=== PATIENT | male | born 1940 | race Caucasian/White ===

== ENCOUNTER 2017-10-18 13:03 | Inpatient (IN) | payer MEDICARE, OTHER ==
[2017-10-18] VITALS (8 sets, daily range): BP systolic 90–119; BP diastolic 52–67; PULSE 78–87; RESP 16–20; TEMP 97.4–98.1; O2SAT 93–99
[~2017-10-18 13:03] MED LIST: AMLO2.5T PO; DIOV160T3 PO; DIPH2%T PO; GLUCTAB PO; OSEL75 PO; PROT40TA PO; ROBISYP PO; ZOFR4TAB3 SL; [UNRECOGNIZED DRUG - SUPPLY] NASAL
--- NOTE | 2017-10-18 13:28 | PD ---
HPI Chief Complaint: General Weakness Time Seen by Provider: 13:07 Travel History International Travel<30 days: No Contact w/Intl Traveler<30days: No Traveled to known affect area: No History of Present Illness HPI 76-year-old male presents to the emergency department via EMS for evaluation of fatigue, dizziness, generalized weakness, nausea. Patient states that he has been having these symptoms for the past 3 weeks. He went to [facility] on September 27. He states that they did a cardiac catheterization and told him it was too risky to place a stent. However, they came back and wanted to place a stent, back He declined. He states that he states has switched cardiologists since then and now sees Dr. Galdamez. Patient states that this morning, the symptoms have worsened and he vomited 1. Patient denies any headache. No fevers or chills. He denies any chest pain or shortness of breath. No abdominal pain. No nausea, vomiting, diarrhea. Patient denies any exacerbating or alleviating factors for his dizziness. No pain. No syncope. Moderate severity. PFSH Past Medical History Diabetes: Yes GERD: Yes Hypertension: Yes ?: Not Social History Alcohol Use: No Tobacco Use: No Substance Use: No Allergies-Medications (Allergen,Severity, Reaction): Coded Allergies: No Known Allergies (Verified Adverse Reaction, Unknown, 10/18/17) Uncoded Allergies: NKA (Allergy, Unknown, 07/05/03) Reported Meds & Prescriptions Reported Meds & Active Scripts Active Reported B-12 (Cyanocobalamin) 1,000 Mcg Subl 1,000 Mcg SL DAILY Vitamin D3 (Cholecalciferol) 2,000 Unit Cap 2,000 Units PO DAILY Aspirin Low Dose (Aspirin) 81 Mg Chew 81 Mg CHEW DAILY Furosemide 40 Mg Tab 40 Mg PO DAILY Carvedilol 3.125 Mg Tab 3.125 Mg PO BID Review of Systems Except as stated in HPI: all other systems reviewed are Neg Physical Exam Narrative GENERAL: Well-nourished, well-developed male patient, afebrile SKIN: Focused skin assessment warm/dry. HEAD: Normocephalic. Atraumatic. EYES: No scleral icterus. No injection or drainage. PERRLA. EOM intact. ENT: Mucosa pink and moist. No erythema or exudates. No uvular edema. No uvular , palatal, or tonsillar deviation. Airway patent. Nasal turbinates appear normal without nasal blood, purulent drainage or septal hematoma. Bilateral tympanic membranes are clear without erythema or perforation. NECK: Supple, trachea midline. No JVD or lymphadenopathy. CARDIOVASCULAR: Regular rate and rhythm without murmurs, gallops, or rubs. Bilateral radial and pedal pulses 2+ RESPIRATORY: Breath sounds equal bilaterally. No accessory muscle use. Lungs sounds are clear to auscultation. GASTROINTESTINAL: Abdomen soft, non-tender, nondistended. MUSCULOSKELETAL: No cyanosis, or edema. Bilateral upper and lower extremity strength 5/5. All extremities are neurovascularly intact. BACK: Nontender without obvious deformity. No CVA tenderness. NEUROLOGICAL: Awake and alert. Cranial nerves II through XII intact. Motor and sensory grossly within normal limits. Five out of 5 muscle strength in all muscle groups. Normal speech. Finger to nose is normal bilaterally. Heel-to- hayden is normal bilaterally. Data Data Last Documented VS Vital Signs Date Time Temp Pulse Resp B/P (MAP) Pulse Ox O2 Delivery O2 Flow Rate FiO2 10/18/17 15:35 78 20 102/56 (71) 98 2.00 10/18/17 14:13 Room Air 10/18/17 13:22 98.1 Orders Orders Electrocardiogram (10/18/17 13:18) Basic Metabolic Panel (Bmp) (10/18/17 13:18) B-Type Natriuretic Peptide (10/18/17 13:18) Ckmb (Isoenzyme) Profile (10/18/17 13:18) Complete Blood Count With Diff (10/18/17 13:18) Magnesium (Mg) (10/18/17 13:18) Prothrombin Time / Inr (Pt) (10/18/17 13:18) Act Partial Throm Time (Ptt) (10/18/17 13:18) Troponin I (10/18/17 13:18) Chest, Single Ap (10/18/17 13:18) Ecg Monitoring (10/18/17 13:18) Bilateral Bp Monitoring (10/18/17 13:18) Iv Access Insert/Monitor (10/18/17 13:18) Oximetry (10/18/17 13:18) Oxygen Administration (10/18/17 13:18) Sodium Chloride 0.9% Flush (Ns Flush) (10/18/17 13:30) Ondansetron Inj (Zofran Inj) (10/18/17 13:30) Aspirin Chew (Aspirin Chew) (10/18/17 15:00) Admit Order (Ed Use Only) (10/18/17 15:50) Labs Laboratory Tests Test 10/18/17 13:25 White Blood Count 10.1 TH/MM3 Red Blood Count 4.05 MIL/MM3 Hemoglobin 11.3 GM/DL Hematocrit 34.7 % Mean Corpuscular Volume 85.7 FL Mean Corpuscular Hemoglobin 27.8 PG Mean Corpuscular Hemoglobin Concent 32.5 % Red Cell Distribution Width 16.2 % Platelet Count 218 TH/MM3 Mean Platelet Volume 9.2 FL Neutrophils (%) (Auto) 87.3 % Lymphocytes (%) (Auto) 5.4 % Monocytes (%) (Auto) 6.0 % Eosinophils (%) (Auto) 0.6 % Basophils (%) (Auto) 0.7 % Neutrophils # (Auto) 8.8 TH/MM3 Lymphocytes # (Auto) 0.5 TH/MM3 Monocytes # (Auto) 0.6 TH/MM3 Eosinophils # (Auto) 0.1 TH/MM3 Basophils # (Auto) 0.1 TH/MM3 CBC Comment DIFF FINAL Differential Comment Prothrombin Time 10.8 SEC Prothromb Time International Ratio 1.1 RATIO Activated Partial Thromboplast Time 22.8 SEC Blood Urea Nitrogen 36 MG/DL Creatinine 1.60 MG/DL Random Glucose 151 MG/DL Calcium Level 8.6 MG/DL Magnesium Level 2.3 MG/DL Sodium Level 134 MEQ/L Potassium Level 3.4 MEQ/L Chloride Level 95 MEQ/L Carbon Dioxide Level 28.7 MEQ/L Anion Gap 10 MEQ/L Estimat Glomerular Filtration Rate 42 ML/MIN Total Creatine Kinase 65 U/L Troponin I 0.04 NG/ML B-Type Natriuretic Peptide 1492 PG/ML MDM Medical Decision Making Medical Screen Exam Complete: Yes Emergency Medical Condition: Yes Medical Record Reviewed: Yes Interpretation(s) chest x-ray - CONCLUSION: Minimal and nonspecific bibasilar parenchymal changes. Mild compensated cardiomegaly Differential Diagnosis ACS versus electrolyte abnormality versus dehydration versus cardiac arrhythmia Narrative Course 76-year-old male presents to the emergency department for evaluation of worsening fatigue, dizziness, nausea, generalized weakness. Recently had a cardiac workup done at [facility]. His current clinical quality rn is Dr. Galdamez. Records will be obtained from [facility]. EKG, CBC, BMP, CK, troponin, BNP, PTT, PT/INR, chest x-ray are ordered and pending. EKG shows sinus rhythm with PVCs, heart rate 79. CBC shows no acute abnormality. CMP shows BUN 36, currently 1.60, glucose 151. BNP is 1492. CK is 65. Troponin is 0.04. Coags show no acute abnormality. Chest x-ray shows minimal and nonspecific bibasilar parenchymal changes; mild compensated cardiomegaly I was able to obtain records from [facility]. The patient has severe ischemic dilated cardiomyopathy. Cardiac catheterization showed severe triple vessel coronary artery disease. He was given consultation for bypass surgery or high risk stage PCI. Apparently, the patient was upset that he did not receive a stent during the cardiac catheter in opted for medical management. He states that he wanted a second opinion that is why he is now seeing Dr. Galdamez. He states that he is supposed to have a cardiac catheterization done on October 30. However, he states that he is becoming more and more fatigued. Patient is given aspirin 162 mg by mouth. [facility] is paged for admission. Diagnosis Primary Impression: Generalized weakness Additional Impressions: Dizziness Coronary artery disease Qualified Codes: I25.10 - Atherosclerotic heart disease of [place] coronary artery without angina pectoris Admitting Information Admitting Physician Requests: Admit Letitia Browne Oct 18, 2017 13:28
[2017-10-18] MEDS ORDERED: SODIUM CHLORIDE 0.9% FLUSH 10 ML FLUSH IVF PRN (13:30)
[2017-10-18] MEDS ORDERED: ONDANSETRON HCL 4 MG/2 ML VIAL IV PUSH ONE (13:30)
--- NOTE | 2017-10-18 13:43 | RADRPT ---
EXAM DATE/TIME: 10/18/2017 13:34 [facility] COMPARISON: CHEST SINGLE AP, October 22, 2014, 23:43. INDICATIONS : Chest pain and dizziness. MEDICAL HISTORY : None. SURGICAL HISTORY : None. ENCOUNTER: Initial ACUITY: 1 day PAIN SCORE: 4/10 LOCATION: chest FINDINGS: Bibasilar parenchymal changes progressed from the comparison study. Mild compensated cardiomegaly. No alveolar consolidation or pleural effusion. The portion of the bony skeleton visualized is unremar kable. CONCLUSION: Minimal and nonspecific bibasilar parenchymal changes. Mild compensated cardiomegaly Andrea Adrian MD FACR on October 18, 2017 at 13:40 Board Certified Radiologist. This report was verified electronically.
[2017-10-18 14:00] LABS: AUTOMATED NEUTROPHIL # 8.8 TH/MM3 (1.8-7.7); BASOPHIL # 0.1 TH/MM3 (0-0.2); BASOPHIL % 0.7 % (0.0-2.0); EOSINOPHIL # 0.1 TH/MM3 (0-0.4); EOSINOPHIL % 0.6 % (0.0-4.0); HEMATOCRIT 34.7 % (39.0-51.0); HEMOGLOBIN 11.3 GM/DL (13.0-17.0); LYMPH % 5.4 % (9.0-44.0); LYMPHOCYTE # 0.5 TH/MM3 (1.0-4.8); MEAN CELL VOLUME 85.7 FL (80.0-100.0); MEAN CORPUSCULAR HEMOGLOBIN 27.8 PG (27.0-34.0); MEAN CORPUSCULAR HGB CONC 32.5 % (32.0-36.0); MEAN PLATELET VOLUME 9.2 FL (7.0-11.0); MONOCYTE # 0.6 TH/MM3 (0-0.9); NEUT % 87.3 % (16.0-70.0); PLATELET COUNT 218 TH/MM3 (150-450); RED BLOOD COUNT 4.05 MIL/MM3 (4.50-5.90); RED CELL DISTRIBUTION WIDTH 16.2 % (11.6-17.2); WHITE BLOOD COUNT 10.1 TH/MM3 (4.0-11.0)
[2017-10-18 14:08] LABS: INTERNATIONAL NORMALIZED RATIO 1.1 RATIO; PROTHROMBIN TIME - PATIENT 10.8 SEC (9.8-11.6)
[2017-10-18 14:16] LABS: BICARBONATE 28.7 MEQ/L (21.0-32.0); CALCIUM 8.6 MG/DL (8.5-10.1); CREATININE 1.6 MG/DL (0.60-1.30); MAGNESIUM 2.3 MG/DL (1.5-2.5)
[2017-10-18 14:19] LABS: TROPONIN I 0.04 NG/ML (0.02-0.05)
[2017-10-18] MEDS ORDERED: ASPIRIN 81 MG CHEW TAB CHEW ONE (15:00)
[2017-10-18] MEDS ORDERED: FURO40TA PO (15:04)
[2017-10-18] MEDS ORDERED: CARV3.12 PO (15:04)
[2017-10-18] MEDS ORDERED: VITA2000 PO (15:04)
[2017-10-18] MEDS ORDERED: ASPI81CH6 CHEW (15:04)
[2017-10-18] MEDS ORDERED: CYAN100025 SL (15:04)
--- NOTE | 2017-10-18 16:40 | EKG ---
Date Performed: 10/18/2017 Time Performed: 13:27:32 PTAGE: 76 years EKG: Sinus rhythm WITH FIRST DEGREE AV BLOCK WITH OCCASIONAL VENTRICULAR PREMATURE COMPLEXES MODERATE INTRAVENTRICULAR CONDUCTION DELAY NONSPECIFIC ST & T-WAVE ABNORMALITY PROLONGED QT INTERVAL ABNORMAL ECG PREVIOUS TRACING : 10/22/2014 23.52 Compared to prior tracing no significant change DOCTOR: July Leiva Interpretating Date/Time 10/18/2017 16:38:52
[2017-10-18] MEDS ORDERED: GLUCAGON 1 MG/ML VIAL OTHER PRN (16:45)
[2017-10-18] MEDS ORDERED: LORazepam 2 MG/ML VIAL IV PUSH PRN ×4 (16:45)
[2017-10-18] MEDS ORDERED: LORazepam 1 MG TAB PO PRN (16:45)
[2017-10-18] MEDS ORDERED: LORazepam 2 MG TAB PO PRN (16:45)
[2017-10-18] MEDS ORDERED: LACTULOSE SYRUP 20 GM/30 ML CUP PO PRN (16:45)
[2017-10-18] MEDS ORDERED: NALOXONE HCL 0.4 MG/ML AMP IV PUSH PRN (16:45)
[2017-10-18] MEDS ORDERED: ENOXAPARIN SODIUM 40 MG/0.4 ML SYRINGE SQ SCH (16:45)
[2017-10-18] MEDS ORDERED: DEXTROSE 50% IN WATER 50 ML VIAL(D50) IV PUSH PRN (16:45)
[2017-10-18] MEDS ORDERED: oxyCODONE/ACETAMINOPHEN 10 MG/325 MG TAB PO PRN (16:45)
[2017-10-18] MEDS ORDERED: SENNOSIDES 8.6 MG TAB PO PRN (16:45)
[2017-10-18] MEDS ORDERED: METOCLOPRAMIDE HCL 10 MG/2 ML VIAL IV PUSH PRN (16:45)
[2017-10-18] MEDS ORDERED: oxyCODONE/ACETAMINOPHEN 5 MG/325 MG TAB PO PRN (16:45)
[2017-10-18] MEDS ORDERED: ACETAMINOPHEN 325 MG TAB PO PRN ×2 (16:45)
[2017-10-18] MEDS ORDERED: MORPHINE SULFATE 2 MG/ML INJ IV PUSH PRN ×2 (16:45)
[2017-10-18] MEDS ORDERED: MAGNESIUM HYDROXIDE SUSP 30 ML CUP PO PRN (16:45)
[2017-10-18] MEDS ORDERED: ONDANSETRON HCL 4 MG/2 ML VIAL IVP PRN (16:45)
[2017-10-18] MEDS ORDERED: BISACODYL 10 MG SUPP RECTAL PRN (16:45)
[2017-10-18] MEDS ORDERED: FLUMAZENIL 0.5 MG/5 ML VIAL IV PUSH PRN (16:45)
[2017-10-18] MEDS ORDERED: SODIUM CHLORIDE 0.9% FLUSH 10 ML FLUSH IV FLUSH PRN ×2 (16:45)
[2017-10-18] MEDS ORDERED: NITROGLYCERIN 0.4 MG SL 25 TABS/BTL SL PRN (16:45)
--- NOTE | 2017-10-18 16:59 | HHI.HP ---
[facility] Unknown Admission Diagnosis generalized weakness, dizziness, severe triple vessel CAD Diagnoses: (1) Generalized weakness (2) Dizziness (3) Coronary artery disease Chief Complaint: Generalized weakness and dizziness and severe triple-vessel coronary artery disease Travel History International Travel<30 Days: No Contact w/Intl Traveler <30 Da: No Traveled to Known Affected Are: No History of Present Illness Patient is a 76-year-old male. Who presented to emergency department via EMS for evaluation of fatigue, dizziness, generalized weakness, nausea. Patient states that he's been having these symptoms on and off for the past 3 weeks. He went to [facility] on September 27 through September 30 he states that they did a cardiac catheterization and told him it was too risky to place a stent. However then they came back and wanted to place a stent. He declined. 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 Therefore he presented to the hospital here. Patient denies any headache. Denies any fever or chills. Denies any chest pain or shortness of breath at this time. Denies any abdominal pain denies any nausea vomiting or diarrhea denies any exacerbating or alleviating factors for his dizziness denies any pain and denies any syncope this is moderate to severe in affecting his life Review of Systems Constitutional: COMPLAINS OF: Fatigue, Dizziness, DENIES: Diaphoretic episodes , Fever, Weight gain, Weight loss, Chills, Change in appetite, Night Sweats Endocrine: DENIES: Heat/cold intolerance, Polydipsia, Polyuria, Polyphagia Eyes: DENIES: Blurred vision, Diplopia, Eye inflammation, Eye pain Ears, nose, mouth, throat: DENIES: Tinnitus, Hearing loss, Vertigo, Nasal discharge, Oral lesions, Throat pain Respiratory: DENIES: Apneas, Cough, Snoring, Wheezing, Hemoptysis, Sputum production Cardiovascular: COMPLAINS OF: Chest pain, Dyspnea on Exertion, Lower Extremity Edema, DENIES: Palpitations, Syncope, PND Gastrointestinal: DENIES: Abdominal pain, Black stools, Bloody stools, Constipation, Diarrhea, Nausea Genitourinary: DENIES: Sexual dysfunction, Urinary frequency Musculoskeletal: DENIES: Joint pain, Muscle aches, Stiffness Integumentary: DENIES: Abnormal pigmentation, Nail changes Hematologic/lymphatic: DENIES: Lymphadenopathy Immunologic/allergic: DENIES: Eczema, Urticaria Neurologic: COMPLAINS OF: Abnormal gait, DENIES: Headache, Localized weakness, Paresthesias, Seizures, Speech Problems Psychiatric: COMPLAINS OF: Anxiety, Depression, DENIES: Confusion, Mood changes , Hallucinations, Agitation, Suicidal Ideation, Homicidal Ideation Except as stated in HPI: all other systems reviewed are Neg Past Family Social History Past Medical History Diabetes mellitus Multivessel coronary artery disease GERD Hypertension Past Surgical History Denies other cardiac catheterizations Reported Medications Reported Meds & Active Scripts Active Reported B-12 (Cyanocobalamin) 1,000 Mcg Subl 1,000 Mcg SL DAILY Vitamin D3 (Cholecalciferol) 2,000 Unit Cap 2,000 Units PO DAILY Aspirin Low Dose (Aspirin) 81 Mg Chew 81 Mg CHEW DAILY Furosemide 40 Mg Tab 40 Mg PO DAILY Carvedilol 3.125 Mg Tab 3.125 Mg PO BID Allergies: Coded Allergies: No Known Allergies (Verified Allergy, Unknown, 10/18/17) Uncoded Allergies: NKA (Allergy, Unknown, 07/05/03) Active Ordered Medications Current Medications Sodium Chloride (NS Flush) 2 ml UNSCH PRN IVF FLUSH AFTER USING IV ACCESS; Start 10/18/17 at 13:30 Ondansetron HCl (Zofran Inj) 4 mg ONCE ONCE IV PUSH Last administered on 10/18 13:25; Start 10/18/17 at 13:30; Stop 10/18/17 at 13:31; Status DC Aspirin (Aspirin Chew) 162 mg ONCE ONCE CHEW Last administered on 10/18/17t 15:34; Start 10/18/17 at 15:00; Stop 10/18/17 at 15:01; Status DC Aspirin (Aspirin Chew) 81 mg DAILY CHEW ; Start 10/19/17 at 09:00 Carvedilol (Coreg) 3.125 mg BID PO ; Start 10/18/17 at 21:00 Cholecalciferol (Vitamin D3) 2,000 units DAILY PO ; Start 10/19/17 at 09:00 Furosemide (Lasix) 40 mg DAILY PO ; Start 10/19/17 at 09:00 Non-Formulary Medication 1,000 mcg DAILY SL ; Start 10/19/17 at 09:00; Status UNV Dextrose (D50w (Vial) Inj) 50 ml UNSCH PRN IV PUSH HYPOGLYCEMIA-SEE COMMENTS; Start 10/18/17 at 16:45 Glucagon (Glucagon Inj) 1 mg UNSCH PRN OTHER HYPOGLYCEMIA-SEE COMMENTS; Start 10/18/17 at 16:45 Insulin Aspart (NovoLOG SUPPLEMENTAL SCALE) 1 ACHS SLIDING SCALE SQ ; Start at 17:00 Family History Denies any issues Social History Denies any tobacco alcohol or illicits currently 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 At this moment SKIN: No rashes, ecchymoses or lesions. Cool and dry. HEAD: Atraumatic. Normocephalic. No temporal or scalp tenderness. EYES: Pupils equal round and reactive. Extraocular motions intact. No scleral icterus. No injection or drainage. ENT: Nose without bleeding, purulent drainage or septal hematoma. Throat without erythema, tonsillar hypertrophy or exudate. Uvula midline. Airway patent. NECK: Trachea midline. No JVD or lymphadenopathy. Supple, nontender, no meningeal signs. CARDIOVASCULAR: Regular rate and rhythm without murmurs, gallops, or rubs. S1 and S2 no S3 or S4 RESPIRATORY: Clear to auscultation. Breath sounds equal bilaterally. No wheezes , rales, or rhonchi. GASTROINTESTINAL: Abdomen soft, non-tender, nondistended. No hepato-splenomegaly , or palpable masses. No guarding. MUSCULOSKELETAL: Extremities without clubbing, cyanosis, or edema. No joint tenderness, effusion, or edema noted. No calf tenderness. Negative Homans sign bilaterally. +1 lower extremity edema NEUROLOGICAL: Awake and alert. Cranial nerves II through XII intact. Motor and sensory grossly within normal limits. 4 out of 5 muscle strength in all muscle groups. Normal speech. Insight and judgment is good And behavior is appropriate Laboratory Laboratory Tests Test 10/18/17 13:25 White Blood Count 10.1 Red Blood Count 4.05 Hemoglobin 11.3 Hematocrit 34.7 Mean Corpuscular Volume 85.7 Mean Corpuscular Hemoglobin 27.8 Mean Corpuscular Hemoglobin Concent 32.5 Red Cell Distribution Width 16.2 Platelet Count 218 Mean Platelet Volume 9.2 Neutrophils (%) (Auto) 87.3 Lymphocytes (%) (Auto) 5.4 Monocytes (%) (Auto) 6.0 Eosinophils (%) (Auto) 0.6 Basophils (%) (Auto) 0.7 Neutrophils # (Auto) 8.8 Lymphocytes # (Auto) 0.5 Monocytes # (Auto) 0.6 Eosinophils # (Auto) 0.1 Basophils # (Auto) 0.1 CBC Comment DIFF FINAL Differential Comment Prothrombin Time 10.8 Prothromb Time International Ratio 1.1 Activated Partial Thromboplast Time 22.8 Blood Urea Nitrogen 36 Creatinine 1.60 Random Glucose 151 Calcium Level 8.6 Magnesium Level 2.3 Sodium Level 134 Potassium Level 3.4 Chloride Level 95 Carbon Dioxide Level 28.7 Anion Gap 10 Estimat Glomerular Filtration Rate 42 Total Creatine Kinase 65 Troponin I 0.04 B-Type Natriuretic Peptide 1492 Result Diagram: 10/18/17 1325 10/18/17 1325 Imaging Last Impressions Chest X-Ray 10/18/17 1318 Signed Impressions: Service Date/Time: Wednesday, October 18, 2017 13:34 - CONCLUSION: Minimal and nonspecific bibasilar parenchymal changes. Mild compensated cardiomegaly Andrea Adrian MD FACR Caprini VTE Risk Assessment Caprini VTE Risk Assessment: Mod/High Risk (score >= 2) Caprini Risk Assessment Model Point Value = 1 Point Value = 2 Point Value = 3 Point Value = 5 Age 41-60 Minor surgery BMI > 25 kg/m2 Swollen legs Varicose veins or History of unexplained or recurrent spontaneous Oral contraceptives or hormone replacement Sepsis (< 1 month) Serious lung disease, including pneumonia (< 1 month) Abnormal pulmonary function Acute myocardial infarction Congestive heart failure (< 1 month) History of inflammatory bowel disease Medical patient at bed rest Age 61-74 Arthroscopic surgery Major open surgery (> 45 min) Laparoscopic surgery (> 45 min) Malignancy Confined to bed (> 72 hours) Immobilizing plaster cast Central venous access Age >= 75 History of VTE Family history of VTE Factor V Leiden Prothrombin [id number] Lupus anticoagulant Anticardiolipin antibodies Elevated serum homocysteine Heparin-induced thrombocytopenia Other congenital or acquired thrombophilia Stroke (< 1 month) Elective arthroplasty Hip, pelvis, or leg fracture Acute spinal cord injury (< 1 month) Prophylaxis Regimen Total Risk Factor Score Risk Level Prophylaxis Regimen 0-1 Low Early ambulation 2 Moderate Order ONE of the following: *Sequential Compression Device (SCD) *Heparin 5000 units SQ BID 3-4 Higher Order ONE of the following medications: *Heparin 5000 units SQ TID *Enoxaparin/Lovenox 40 mg SQ daily (WT < 150 kg, CrCl > 30 mL/min) *Enoxaparin/Lovenox 30 mg SQ daily (WT < 150 kg, CrCl > 10-29 mL/min) *Enoxaparin/Lovenox 30 mg SQ BID (WT < 150 kg, CrCl > 30 mL/min) AND/OR *Sequential Compression Device (SCD) 5 or more Highest Order ONE of the following medications: *Heparin 5000 units SQ TID (Preferred with Epidurals) *Enoxaparin/Lovenox 40 mg SQ daily (WT < 150 kg, CrCl > 30 mL/min) *Enoxaparin/Lovenox 30 mg SQ daily (WT < 150 kg, CrCl > 10-29 mL/min) *Enoxaparin/Lovenox 30 mg SQ BID (WT < 150 kg, CrCl > 30 mL/min) AND *Sequential Compression Device (SCD) Assessment and Plan Assessment and Plan Generalized weakness. May be medication effect. Versus issues due to his cardiac issues Physical therapy occupational therapy to eval and treat Coronary artery disease multivessel we'll consult cardiology Has severe ischemic dilated cardiomyopathy with triple-vessel disease Cardiovascular surgery at [facility] did not offer bypass surgery Patient had medical management suggested. Has seen Dr. Galdamez and is scheduled for cardiac catheterization on October 30 Becoming more and more fatigued Diabetes mellitus continue on sliding scale coverage and Accu-Cheks before meals and at bedtime Renal insufficiency monitor renal functions Hyperlipidemia continue on statin GERD continue on home medications We'll continue on anticoagulation with Lovenox Consult cardiology A.m. labs Trend troponins and cardiac enzymes will get a repeat echo Code Status Full code Discussed Condition With Discussed with patient and RN and daughter at bedside as well as ER physician and ER PA Physician Certification 2 Midnight Certification Type: Admission for Inpatient Services Order for Inpatient Services The services are ordered in accordance with Medicare regulations or non- Medicare payer requirements, as applicable. In the case of services not specified as inpatient-only, they are appropriately provided as inpatient services in accordance with the 2-midnight benchmark. Estimated LOS (days): 2 2 days is the estimated time the patient will need to remain in the hospital, assuming treatment plan goals are met and no additional complications. Post-Hospital Plan: Not yet determined Problem Qualifiers (1) Coronary artery disease: Qualified Codes: I25.10 - Atherosclerotic heart disease of [place] coronary artery without angina pectoris Andrea Gómez DO Oct 18, 2017 16:58
[2017-10-18] MEDS: PANTOPRAZOLE SOD 40 MG DELAYED RELEASE TAB PO SCH (17:33)
[2017-10-18] MEDS: INSULIN ASPART SUPPLEMENTAL SCALE SQ SCH ×2 (17:34→21:00)
[2017-10-18] MEDS ORDERED: ENOXAPARIN SODIUM 80 MG/0.8 ML SYRINGE SQ SCH (18:00)
[2017-10-18] MEDS ORDERED: SODIUM CHLORIDE 0.9% FLUSH 10 ML FLUSH IV FLUSH SCH (21:00)
[2017-10-18] MEDS: DOCUSATE SODIUM 50 MG/SENNA 8.6 MG TAB PO SCH (21:00)
[2017-10-18] MEDS: SODIUM CHLORIDE 0.9% FLUSH 10 ML FLUSH IV FLUSH SCH (21:00)
[2017-10-18] MEDS: CARVEDILOL 3.125 MG TAB PO SCH (21:00)
[2017-10-18 22:35] LABS: TROPONIN I 0.07 NG/ML (0.02-0.05)
[2017-10-19] VITALS (9 sets, daily range): BP systolic 78–109; BP diastolic 49–67; PULSE 70–91; RESP 17–19; TEMP 97.3–98.1; O2SAT 96–99
[2017-10-19 05:26] LABS: ALT (GPT) 27 U/L (12-78); CHOLESTEROL 129 MG/DL (120-200); TRIGLYCERIDES 78 MG/DL (42-150)
[2017-10-19 05:30] LABS: AUTOMATED NEUTROPHIL # 5.8 TH/MM3 (1.8-7.7); BASOPHIL # 0.1 TH/MM3 (0-0.2); BASOPHIL % 0.8 % (0.0-2.0); EOSINOPHIL # 0.1 TH/MM3 (0-0.4); EOSINOPHIL % 0.8 % (0.0-4.0); HEMATOCRIT 35.1 % (39.0-51.0); HEMOGLOBIN 11.7 GM/DL (13.0-17.0); LYMPH % 15.7 % (9.0-44.0); LYMPHOCYTE # 1.2 TH/MM3 (1.0-4.8); MEAN CELL VOLUME 85.2 FL (80.0-100.0); MEAN CORPUSCULAR HEMOGLOBIN 28.3 PG (27.0-34.0); MEAN CORPUSCULAR HGB CONC 33.2 % (32.0-36.0); MEAN PLATELET VOLUME 9.7 FL (7.0-11.0); MONO % 8.2 % (0.0-8.0); MONOCYTE # 0.6 TH/MM3 (0-0.9); NEUT % 74.5 % (16.0-70.0); PLATELET COUNT 217 TH/MM3 (150-450); RED BLOOD COUNT 4.12 MIL/MM3 (4.50-5.90); RED CELL DISTRIBUTION WIDTH 16.2 % (11.6-17.2); WHITE BLOOD COUNT 7.8 TH/MM3 (4.0-11.0)
[2017-10-19 05:36] LABS: ALBUMIN 3.1 GM/DL (3.4-5.0); ALKALINE PHOSPHATASE 66 U/L (45-117); AST (GOT) 29 U/L (15-37); BICARBONATE 34.3 MEQ/L (21.0-32.0); BLOOD UREA NITROGEN 35 MG/DL (7-18); CALCIUM 8.4 MG/DL (8.5-10.1); CHLORIDE 93 MEQ/L (98-107); CHOLESTEROL/ HDL RATIO 2.11 RATIO; CREATININE 1.77 MG/DL (0.60-1.30); FREE T4 1.34 NG/DL (0.76-1.46); GLOMERULAR FILTRATION RATE 37 ML/MIN (>89); GLUCOSE,RANDOM 104 MG/DL (74-106); LDL CHOLESTEROL 52 MG/DL (0-99); MAGNESIUM 2.2 MG/DL (1.5-2.5); PHOSPHORUS 3.1 MG/DL (2.5-4.9); SODIUM (NA) 135 MEQ/L (136-145); TOTAL BILIRUBIN ADULT 1.1 MG/DL (0.2-1.0); TOTAL PROTEIN 7.1 GM/DL (6.4-8.2); TROPONIN I 0.09 NG/ML (0.02-0.05)
[2017-10-19] MEDS: INSULIN ASPART SUPPLEMENTAL SCALE SQ SCH ×4 (07:51→20:24)
[2017-10-19] MEDS: CYANOCOBALAMIN 1,000 MCG TAB PO SCH (07:55)
[2017-10-19] MEDS: FUROSEMIDE 40 MG TAB PO SCH (07:55)
[2017-10-19] MEDS: PANTOPRAZOLE SOD 40 MG DELAYED RELEASE TAB PO SCH (07:56)
[2017-10-19] MEDS: SODIUM CHLORIDE 0.9% FLUSH 10 ML FLUSH IV FLUSH SCH ×2 (07:56→20:23)
[2017-10-19] MEDS: CHOLECALCIFEROL (VIT D3) 1000 UNIT TAB PO SCH (07:56)
[2017-10-19] MEDS: ASPIRIN 81 MG CHEW TAB CHEW SCH (07:56)
[2017-10-19] MEDS: DOCUSATE SODIUM 50 MG/SENNA 8.6 MG TAB PO SCH ×2 (07:56→20:24)
[2017-10-19] MEDS: CARVEDILOL 3.125 MG TAB PO SCH ×2 (09:00→20:24)
[2017-10-19] MEDS ORDERED: POTASSIUM BICARBONATE 25 MEQ EFFERVESCENT TAB PO ONE (14:00)
--- NOTE | 2017-10-19 14:10 | HHI.PR ---
Subjective Remarks patient is awake and alert, very interactive states he is comfortable now no dizziness on head turning no nausea or vomiting, chest pains or shortness of breath or palpitation main complain before he came in was he got dizzy when he turns his head to the right yesterday and bevame diaphoretic Objective Vitals Vital Signs Date Time Temp Pulse Resp B/P (MAP) Pulse Ox O2 Delivery O2 Flow Rate FiO2 10/19/17 12:17 97.3 77 18 95/51 (66) 98 97/56 (70) 10/19/17 08:24 97.9 82 18 109/61 (77) 98 10/19/17 04:30 97.6 81 18 103/67 (79) 97 100/57 (71) 10/19/17 00:57 100/57 (71) 10/19/17 00:56 97.7 79 18 102/55 (71) 97 10/18/17 20:57 97.6 83 16 103/55 (71) 94 90/52 (65) 10/18/17 18:17 97.4 87 20 111/64 (80) 99 100/61 (74) 10/18/17 17:50 72 18 119/67 (84) 99 Nasal Cannula 2.00 10/18/17 15:35 78 20 102/56 (71) 98 2.00 10/18/17 14:13 78 18 116/56 (76) 96 Room Air 106/59 (75) 10/18/17 14:11 86 18 116/56 (76) Room Air I/O 10/18/17 10/18/17 10/18/17 10/19/17 10/19/17 10/19/17 07:00 15:00 23:00 07:00 15:00 23:00 Intake Total 120 ml Output Total 300 ml Balance -180 ml Intake Oral 120 ml Output Urine Total 300 ml Result Diagram: 10/19/17 0436 10/19/17 0436 Imaging Last Impressions Chest X-Ray 10/18/17 1318 Signed Impressions: Service Date/Time: Wednesday, October 18, 2017 13:34 - CONCLUSION: Minimal and nonspecific bibasilar parenchymal changes. Mild compensated cardiomegaly Andrea Adrian MD FACR Objective Remarks awake and alert, oriented x 3 anicteric no nuchal rigdiity, no bruit lungs- decreased breath sounds, no rales or wheezes irregular rhythm abdomen soft nontender no leg swelling, no calf tenderness, very good peripheral pulses A/P Problem List: (1) Generalized weakness ICD Code: R53.1 - Weakness Status: Acute (2) Dizziness ICD Code: R42 - Dizziness and giddiness Status: Acute (3) Coronary artery disease ICD Code: I25.10 - Atherosclerotic heart disease of [place] coronary artery without angina pectoris Status: Acute Assessment and Plan 76 years old male with CAD came in with feels "junky"' Dizziness and diaphoresis- resolved- Possible hypoglycemic reaction- hsitory of DM type 2 on Metformin - DC Metformin. check [id number]- glucose monitoring - no coverage for now - states this happens on and off christophe. when he turn his neck to the right side - check carotid US - definitely no tinnitus- he describes a sensation of "crackling sound" on both ears most of the time christophe. when he yawns - hearing is very sharp and acute - d/w him that he should get ENT evaluation as OP ? TMj - check blood sugars- no coverage - check orthostatics, A1C Generalized weakness. - multifactorial- on exam- feels stronger - no neuro deficits- main concern is above -May be medication effect. Versus issues due to his cardiac issues - Physical therapy occupational therapy to eval and treat - History of Coronary artery disease multivessel Hx of severe ischemic dilated cardiomyopathy - chronic - troponin negative - BNP high but clinically not in acute heart failure, no rales, no leg swelling - Cardiology consulted. He was seen at one point by sounds like Dr. Dumont who planned to do a cath and now sees Dr. 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 recheck in am HYpokalemia -replace with po K recheck in am Hyperlipidemia continue on statin GERD continue on home medications We'll continue on anticoagulation with Lovenox- change to DVT prophylaxis dose Code Status Full code Problem Qualifiers (1) Coronary artery disease: Qualified Codes: I25.10 - Atherosclerotic heart disease of [place] coronary artery without angina pectoris Moiz Payton MD Oct 19, 2017 14:10
[2017-10-19] MEDS ORDERED: DEXTROSE 50% IN WATER 50 ML VIAL(D50) IV PUSH PRN (14:30)
[2017-10-19] MEDS: POTASSIUM CHLORIDE INJ 10 MEQ in SODIUM CHLOR 0.9% 1000 ML INJ 1,000 ML IV SCH (18:06)
--- NOTE | 2017-10-19 18:26 | RADRPT ---
EXAM DATE/TIME: 10/19/2017 17:39 [facility] COMPARISON: No previous studies available for comparison. INDICATIONS : Dizziness. MEDICAL HISTORY : Hypertension. Gastroesophageal reflux disease. Gait problems. Diabetes. Depression. Anxiety. SURGICAL HISTORY : None. ENCOUNTER: Initial ACUITY: 1 day PAIN SCORE: 0/10 LOCATION: Bilateral neck PEAK SYSTOLIC VELOCITIES (cm/sec): ICA/CCA RATIO: Right: 0.8 Left: 0.7 ICA: Right: 60.3 Left: 55.9 CCA: Right: 74.6 Left: 78.7 ECA: Right: 60.3 Left: 57.0 VERTEBRAL: Right: 51.5 antegrade Left: 57.0 antegrade Elevated flow velocities and ICA/CCA ratios have been found to correlate with increased degrees of vessel stenosis, calculated as percentage of diameter relative to a normal segment of distal ICA/CCA FINDINGS: RIGHT CAROTID: Moderate calcified plaque at the carotid bulb. No significant stenosis is visualized. The waveforms are within normal limits. LEFT CAROTID: Moderate calcified plaque at the carotid bulb. No significant stenosis is visualized. The waveforms are within normal limits. VERTEBRAL ARTERIES: Antegrade flow is seen in both vertebral arteries. MISCELLANEOUS: None. CONCLUSION: No evidence of hemodynamically significant carotid stenosis. Duncan Walton MD on October 19, 2017 at 18:24 Board Certified Radiologist. This report was verified electronically.
--- NOTE | 2017-10-19 21:34 | EKG ---
Date Performed: 10/18/2017 Time Performed: 22:33:45 PTAGE: 76 years EKG: Sinus rhythm WITH FIRST DEGREE AV BLOCK WITH FREQUENT VENTRICULAR PREMATURE COMPLEXES MARKED LEFT AXIS DEVIATION MODERATE INTRAVENTRICULAR CONDUCTION DELAY ABNORMAL ECG PREVIOUS TRACING : 10/18/2017 13.27 Compared to prior tracing no significant change DOCTOR: July Leiva Interpretating Date/Time 10/19/2017 21:34:19
[2017-10-20 00:45] VITALS: BP_SYST 102; BP_SYST 106; BP_DIAS 55; BP_DIAS 62; PULSE 83; RESP 18; TEMP 97.7; O2SAT 99
[2017-10-20 05:45] VITALS: BP_SYST 100; BP_SYST 105; BP_DIAS 56; BP_DIAS 64; PULSE 64; RESP 19; TEMP 97.6; O2SAT 96
[2017-10-20] MEDS: INSULIN ASPART SUPPLEMENTAL SCALE SQ SCH ×4 (08:00→20:50)
[2017-10-20 08:25] LABS: BICARBONATE 30.5 MEQ/L (21.0-32.0); BLOOD UREA NITROGEN 36 MG/DL (7-18); CALCIUM 8.5 MG/DL (8.5-10.1); CHLORIDE 91 MEQ/L (98-107); CREATININE 1.65 MG/DL (0.60-1.30); GLOMERULAR FILTRATION RATE 41 ML/MIN (>89); GLUCOSE,RANDOM 121 MG/DL (74-106); SODIUM (NA) 132 MEQ/L (136-145)
[2017-10-20] MEDS: CARVEDILOL 3.125 MG TAB PO SCH ×2 (08:30→20:50)
[2017-10-20] MEDS: SODIUM CHLORIDE 0.9% FLUSH 10 ML FLUSH IV FLUSH SCH ×2 (08:30→20:50)
[2017-10-20] MEDS: PANTOPRAZOLE SOD 40 MG DELAYED RELEASE TAB PO SCH (08:32)
[2017-10-20] MEDS: ASPIRIN 81 MG CHEW TAB CHEW SCH (08:32)
[2017-10-20] MEDS: CYANOCOBALAMIN 1,000 MCG TAB PO SCH (08:33)
[2017-10-20] MEDS: DOCUSATE SODIUM 50 MG/SENNA 8.6 MG TAB PO SCH ×2 (08:33→20:50)
[2017-10-20] MEDS: FUROSEMIDE 40 MG TAB PO SCH (08:33)
[2017-10-20] MEDS: CHOLECALCIFEROL (VIT D3) 1000 UNIT TAB PO SCH (08:33)
[2017-10-20 08:48] VITALS: BP_SYST 112; BP_SYST 114; BP_DIAS 59; PULSE 81; RESP 20; TEMP 97.2; O2SAT 98
[2017-10-20 11:47] VITALS: BP_SYST 101; BP_SYST 95; BP_DIAS 56; BP_DIAS 63; PULSE 75; RESP 20; TEMP 97.6; O2SAT 99
[2017-10-20] MEDS ORDERED: POTASSIUM CHLORIDE 20 MEQ CONTROLLED RELEASE TAB PO ONE (12:00)
[2017-10-20 12:17] LABS: HEMOGLOBIN A1C 6.1 % (4.3-6.0)
--- NOTE | 2017-10-20 12:27 | HHI.PR ---
Subjective Remarks patient is doing great no complains long discussion about cardiac cath no dizziness Objective Vitals Vital Signs Date Time Temp Pulse Resp B/P (MAP) Pulse Ox O2 Delivery O2 Flow Rate FiO2 10/20/17 11:47 97.6 75 20 101/56 (71) 99 95/63 (74) 10/20/17 08:48 97.2 81 20 112/59 (76) 98 114/59 (77) 10/20/17 05:45 97.6 64 19 105/56 (72) 96 100/64 (76) 10/20/17 00:45 97.7 83 18 102/62 (75) 99 106/55 (72) 10/19/17 21:00 98.1 77 17 100/61 (74) 98 89/54 (66) 10/19/17 20:18 97.9 82 19 91/57 (68) 96 91/57 (68) 10/19/17 16:04 98.0 91 17 97/60 (72) 99 78/49 (59) 89/51 (64) 84/50 (61) 81/49 (60) 83/55 (64) I/O 10/19/17 10/19/17 10/19/17 10/20/17 10/20/17 10/20/17 07:00 15:00 23:00 07:00 15:00 23:00 Intake Total 120 ml 240 ml 400 ml 650 ml Output Total 300 ml 350 ml 350 ml 950 ml Balance -180 ml -110 ml 50 ml -300 ml Intake Oral 120 ml 240 ml 400 ml 650 ml Output Urine Total 300 ml 350 ml 350 ml 950 ml # Voids 3 1 # Bowel Movements 0 0 Result Diagram: 10/19/17 0436 10/20/17 0738 Imaging Last Impressions Carotid Artery Ultrasound 10/19/17 0000 Signed Impressions: Service Date/Time: Thursday, October 19, 2017 17:39 - CONCLUSION: No evidence of hemodynamically significant carotid stenosis. Duncan Walton MD Chest X-Ray 10/18/17 1318 Signed Impressions: Service Date/Time: Wednesday, October 18, 2017 13:34 - CONCLUSION: Minimal and nonspecific bibasilar parenchymal changes. Mild compensated cardiomegaly Andrea Adrian MD FACR Objective Remarks awake and alert, oriented x 3 anicteric no nuchal rigdity, no bruit lungs- decreased breath sounds, no rales or wheezes irregular rhythm abdomen soft nontender no leg swelling, no calf tenderness, very good peripheral pulses A/P Problem List: (1) Generalized weakness ICD Code: R53.1 - Weakness Status: Acute (2) Dizziness ICD Code: R42 - Dizziness and giddiness Status: Acute (3) Coronary artery disease ICD Code: I25.10 - Atherosclerotic heart disease of [place] coronary artery without angina pectoris Status: Acute Assessment and Plan 76 years old male with CAD came in with feels "junky"' Dizziness and diaphoresis- resolved- Possible relative hypoglycemic reaction- hsitory of DM type 2 on Metformin - DC Metformin. check [id number]- glucose monitoring - no coverage for now - states this happens on and off christophe. when he turn his neck to the right side - cartoid US- negative - definitely no tinnitus- he describes a sensation of "crackling sound" on both ears most of the time christophe. when he yawns - hearing is very sharp and acute - d/w him that he should get ENT evaluation as OP - possible TMJ dysfunction - check blood sugars- no coverage - A1C good Generalized weakness. - multifactorial- on exam- feels stronger - - no neuro deficits- main concern is above -May be medication effect. Versus issues due to his cardiac issues - Physical therapy occupational therapy daily - History of Coronary artery disease multivessel Hx of severe ischemic dilated cardiomyopathy - chronic - troponin negative - BNP high but clinically not in acute heart failure- likely chronic elevation - ecam , no rales, no leg swelling - Cardiology consulted. He was seen at one point in the past seen what sounds like by Dr. Dumont who planned to do a cath per patient was also seen by Dr. Galdamez who also planned to do a cath- sometime in first week of October per staff- Dr. 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 - continue cardiac meds- ASA, Lasix,, coreg - good lipid panel - will change Lovenox to DVT prophylaxis dose - echo ordered- consider DONOVAN if creatinine stable - hold Metformin as above- in the event of cardiac cath Diabetes mellitus -on metformin - hold Metformin with mildly elevated creatinine - good a1C 6.0 - monitor for hypolgycemic readings - ff BS with sliding scale underlying CKI - from underlying DM nephropathy and cardiomyopathy Hypokalemia -give 40 meq po x 1 -- KCL in IVF- 10 meq in NS- 50 cc/hr - BMP in am Hyperlipidemia continue on statin GERD continue on home medications We'll continue on anticoagulation with Lovenox- change to DVT prophylaxis dose Code Status Full code LOng disucssion with family - he is agreable to cath while in here if Cardiac feel the need tp- we will monitor creatinine and as mentioned- hold Metformin Problem Qualifiers (1) Coronary artery disease: Qualified Codes: I25.10 - Atherosclerotic heart disease of [place] coronary artery without angina pectoris Moiz Payton MD Oct 20, 2017 12:27
[2017-10-20 15:57] VITALS: BP_SYST 89; BP_SYST 95; BP_DIAS 51; BP_DIAS 64; PULSE 86; RESP 20; TEMP 97.2; O2SAT 99
[2017-10-20] MEDS ORDERED: ENOXAPARIN SODIUM 40 MG/0.4 ML SYRINGE SQ SCH (16:00)
[2017-10-20 20:00] VITALS: BP 99/51; PULSE 81; RESP 20; TEMP 97.7; O2SAT 100
--- NOTE | 2017-10-20 21:58 | ECHRPT ---
Indication: Chest pain CONCLUSIONS Mildly dilated left ventricle. Wall thickness is normal. The left ventricular systolic function is moderately to severely reduced with an estimated ejection fraction in the range of 25-30%. Moderate mitral valve regurgitation. Aortic valve sclerosis is present. Trace aortic valve regurgitation. There is mild tricuspid valve regurgitation. The estimated pulmonary arterial pressure is 34 mmHg. Mild pulmonary valve regurgitation. BP: / HR: Rhythm: MEASUREMENTS (Male / Female) Normal Values Technical Quality:Good 2D ECHO LV Diastolic Diameter PLAX 5.5 cm 4.2 - 5.9 / 3.9 - 5.3 cm LV Systolic Diameter PLAX 5.1 cm IVS Diastolic Thickness 1.3 cm 0.6 - 1.0 / 0.6 - 0.9 cm LVPW Diastolic Thickness 0.6 cm 0.6 - 1.0 / 0.6 - 0.9 cm LV Relative Wall Thickness 0.3 RV Internal Dim ED PLAX 2.8 cm LA Systolic Diameter LX 4.0 cm 3.0 - 4.0 / 2.7 - 3.8 cm M-MODE Aortic Root Diameter MM 3.3 cm AV Cusp Separation MM 1.5 cm DOPPLER MR Peak Velocity 439.0 cm/s MR Peak Gradient 77.1 mmHg Mitral E Point Velocity 70.6 cm/s Mitral A Point Velocity 33.6 cm/s Mitral E to A Ratio 2.1 TR Peak Velocity 271.0 cm/s TR Peak Gradient 29.4 mmHg FINDINGS LEFT VENTRICLE Mildly dilated left ventricle. Wall thickness is normal. The left ventricular systolic function is moderately to severely reduced with an estimated ejection fraction in the range of 25-30%. RIGHT VENTRICLE Normal right ventricular size and systolic function. LEFT ATRIUM The left atrial size is normal. RIGHT ATRIUM The right atrial size is normal. ATRIAL SEPTUM Normal atrial septal thickness without atrial level shunting by limited color doppler interrogation. AORTA The aortic root and proximal ascending aorta are normal in size on limited imaging. MITRAL VALVE Moderate mitral valve regurgitation. AORTIC VALVE Aortic valve sclerosis is present. Trace aortic valve regurgitation. TRICUSPID VALVE There is mild tricuspid valve regurgitation. The estimated pulmonary arterial pressure is 34 mmHg. PULMONARY VALVE Mild pulmonary valve regurgitation. VESSELS The inferior vena cava is normal in size. PERICARDIUM No pericardial effusion. July Leiva MD, FACC (Electronically Signed) Final Date:20 October 2017 21:57
[2017-10-20] MEDS: POTASSIUM CHLORIDE INJ 10 MEQ in SODIUM CHLOR 0.9% 1000 ML INJ 1,000 ML IV SCH (23:43)
[2017-10-21] VITALS: BP 93/60; PULSE 79; RESP 20; TEMP 97.4; O2SAT 98
[2017-10-21 05:19] LABS: BICARBONATE 30.9 MEQ/L (21.0-32.0); CALCIUM 8.6 MG/DL (8.5-10.1); CREATININE 1.6 MG/DL (0.60-1.30)
[2017-10-21 05:59] VITALS: BP 116/58; PULSE 81; RESP 20; TEMP 97.6; O2SAT 96
[2017-10-21] MEDS: INSULIN ASPART SUPPLEMENTAL SCALE SQ SCH ×2 (08:00→12:00)
[2017-10-21 08:40] VITALS: BP_SYST 105; BP_SYST 114; BP_DIAS 67; BP_DIAS 73; PULSE 84; RESP 20; TEMP 97.2; O2SAT 100
[2017-10-21] MEDS: CARVEDILOL 3.125 MG TAB PO SCH (08:45)
[2017-10-21] MEDS: PANTOPRAZOLE SOD 40 MG DELAYED RELEASE TAB PO SCH (08:45)
[2017-10-21] MEDS: CYANOCOBALAMIN 1,000 MCG TAB PO SCH (08:45)
[2017-10-21] MEDS: SODIUM CHLORIDE 0.9% FLUSH 10 ML FLUSH IV FLUSH SCH (08:45)
[2017-10-21] MEDS: CHOLECALCIFEROL (VIT D3) 1000 UNIT TAB PO SCH (08:45)
[2017-10-21] MEDS: ASPIRIN 81 MG CHEW TAB CHEW SCH (08:45)
[2017-10-21] MEDS: FUROSEMIDE 40 MG TAB PO SCH (08:45)
[2017-10-21] MEDS: DOCUSATE SODIUM 50 MG/SENNA 8.6 MG TAB PO SCH (08:45)
[2017-10-21] MEDS ORDERED: LISINOPRIL 5 MG TAB PO SCH (11:00)
[2017-10-21 11:30] VITALS: BP_SYST 114; BP_SYST 125; BP_DIAS 63; BP_DIAS 72; PULSE 78; RESP 20; TEMP 97.4; O2SAT 96
[2017-10-21] MEDS ORDERED: ATOR40TA16 PO (13:34)
[2017-10-21] MEDS ORDERED: LISI2.5T3 PO (13:42)
--- NOTE | 2017-10-21 13:42 | HHI.DCPOC ---
Discharge Care Plan Diagnosis: (1) Dizziness (2) Coronary artery disease (3) Generalized weakness Goals to Promote Your Health * To prevent worsening of your condition and complications * To maintain your health at the optimal level Directions to Meet Your Goals Take your medications as prescribed Follow your dietary instruction Follow activity as directed Keep your appointments as scheduled Take your immunizations and boosters as scheduled If your symptoms worsen call your PCP, if no PCP go to Urgent Care Center or Emergency Room Smoking is Dangerous to Your Health. Avoid second hand smoke Call the 24-hour hour crisis hotline for domestic abuse at Joseph Hamilton MD Oct 21, 2017 13:42
--- NOTE | 2017-10-21 13:44 | HHI.FF ---
Face to Face Verification Diagnosis: (1) Generalized weakness (2) Dizziness Physical Therapy Order: Evaluate and Treat Occupational Therapy Order: Evaluate and Treat Home Health Nursing Order: Medical education Signs/symptoms of disease process CHF education I have seen patient Jared Arora on 10/21/17. My clinical findings support the need for the requested home health care services because: Ltd mobility - disease progression Limited ability to care for self Impaired cognition/judgement I certify that my clinical findings support that this patient is homebound because: Unsafe to leave home unassisted Joseph Hamilton MD Oct 21, 2017 13:44
--- NOTE | 2017-10-21 15:00 | HHI.DS ---
Discharge Summary Admission Date Oct 18, 2017 at 15:52 Discharge Date: Oct 21, 2017 Admitting Diagnosis generalized weakness, dizziness, severe triple vessel CAD (1) Generalized weakness ICD Code: R53.1 - Weakness Status: Acute (2) Dizziness ICD Code: R42 - Dizziness and giddiness Status: Acute (3) Coronary artery disease ICD Code: I25.10 - Atherosclerotic heart disease of [place] coronary artery without angina pectoris Status: Acute (4) Acute kidney injury ICD Code: N17.9 - Acute kidney failure, unspecified Procedures none Brief History - From Admission Patient is a 76-year-old male. Who presented to emergency department via EMS for evaluation of fatigue, dizziness, generalized weakness, nausea. Patient states that he's been having these symptoms on and off for the past 3 weeks. He went to [facility] on September 27 through September 30 he states that they did a cardiac catheterization and told him it was too risky to place a stent. However then they came back and wanted to place a stent. He declined. 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 Therefore he presented to the hospital here. Patient denies any headache. Denies any fever or chills. Denies any chest pain or shortness of breath at this time. Denies any abdominal pain denies any nausea vomiting or diarrhea denies any exacerbating or alleviating factors for his dizziness denies any pain and denies any syncope this is moderate to severe in affecting his life CBC/BMP: 10/19/17 0436 10/21/17 0424 Significant Findings Laboratory Tests Test 10/18/17 21:43 10/19/17 04:36 10/20/17 07:38 10/21/17 04:24 Troponin I 0.07 NG/ML (0.02-0.05) 0.09 NG/ML (0.02-0.05) Red Blood Count 4.12 MIL/MM3 (4.50-5.90) Hemoglobin 11.7 GM/DL (13.0-17.0) Hematocrit 35.1 % (39.0-51.0) Neutrophils (%) (Auto) 74.5 % (16.0-70.0) Monocytes (%) (Auto) 8.2 % (0.0-8.0) Blood Urea Nitrogen 35 MG/DL (7-18) 36 MG/DL (7-18) 39 MG/DL (7-18) Creatinine 1.77 MG/DL (0.60-1.30) 1.65 MG/DL (0.60-1.30) 1.60 MG/DL (0.60-1.30) Albumin 3.1 GM/DL (3.4-5.0) Calcium Level 8.4 MG/DL (8.5-10.1) Total Bilirubin 1.1 MG/DL (0.2-1.0) Sodium Level 135 MEQ/L (136-145) 132 MEQ/L (136-145) Potassium Level 3.4 MEQ/L (3.5-5.1) 3.4 MEQ/L (3.5-5.1) Chloride Level 93 MEQ/L (98-107) 91 MEQ/L (98-107) 97 MEQ/L (98-107) Carbon Dioxide Level 34.3 MEQ/L (21.0-32.0) Estimat Glomerular Filtration Rate 37 ML/MIN (>89) 41 ML/MIN (>89) 42 ML/MIN (>89) HDL Cholesterol 61.0 MG/DL (40.0-60.0) Random Glucose 121 MG/DL (74-106) 107 MG/DL (74-106) Hemoglobin A1c 6.1 % (4.3-6.0) Imaging Last Impressions Carotid Artery Ultrasound 10/19/17 0000 Signed Impressions: Service Date/Time: Thursday, October 19, 2017 17:39 - CONCLUSION: No evidence of hemodynamically significant carotid stenosis. Duncan Walton MD Chest X-Ray 10/18/17 1318 Signed Impressions: Service Date/Time: Wednesday, October 18, 2017 13:34 - CONCLUSION: Minimal and nonspecific bibasilar parenchymal changes. Mild compensated cardiomegaly Andrea Adrian MD FACR PE at Discharge Elderly white male lying in bed, no acute distress Heart sounds are irregular with a regular rate Unlabored breathing, coarse breath sounds Hospital Course Patient was admitted. Cardiology was consulted but there was a delay in [facility] consultant appearance. Patient's symptoms of generalized weakness and dizziness had eventually resolved as he received IVFs for mild hypokalemia and EZEQUIEL. He did not have any chest pain or shortness breath throughout his stay. There was a concern that he might have some mild carotid hypersensitivity at best given some intermittent lightheadedness with the turning of his neck along with some mild TMJ disease symptoms. Patient's orthostatics were overall negative and physical therapy concluded that the patient was safe to go home with home health PT. Cardiology concluded that he was stable for discharge and for the patient to follow-up with his sales assistant institutional sales as an outpatient with a possible outpatient cardiac catheterization. Echo was performed which showed EF of 25-30%; pt was started on low dose [id number] and Lipitor. Patient has been maximal benefit from hospitalization and is clinically stable for discharge. Pt Condition on Discharge: Stable Discharge Disposition: Disch w/ Home Health Serv Discharge Time: > 30 minutes Discharge Instructions DIET: Follow Instructions for: Heart Healthy Diet Additional Diet Instructions: fluid restriction to 1500 mL/24 hrs and 2 gm of sodium daily Activities you can perform: Weight Bearing as Vick Follow up Referrals: Cardiology - 10 Days with Grzegorz Galdamez MD Cardiology Oral Maxillary Surgery - 1 Week PCP Follow-up - 1 Week PCP Follow-up New Medications: Atorvastatin (Atorvastatin) 40 Mg Tab 40 MG PO HS for Cholesterol Management, #30 TAB 0 Refills Lisinopril (Lisinopril) 2.5 Mg Tab 2.5 MG PO DAILY, #30 TAB 0 Refills Continued Medications: Aspirin (Aspirin Low Dose) 81 Mg Chew 81 MG CHEW DAILY, TAB 0 Refills Carvedilol (Carvedilol) 3.125 Mg Tab 3.125 MG PO BID, #60 TAB 0 Refills Cholecalciferol (Vitamin D3) 2,000 Unit Cap 2000 UNITS PO DAILY for Nutritional Supplement, #1 BOTTLE 0 Refills Cyanocobalamin (B-12) 1,000 Mcg Subl 1000 MCG SL DAILY for Nutritional Supplement, TAB.SL 0 Refills Furosemide (Furosemide) 40 Mg Tab 40 MG PO DAILY, #30 TAB 0 Refills Joseph Hamilton MD Oct 21, 2017 15:00
[2017-10-21 15:39] VITALS: BP_SYST 100; BP_SYST 111; BP_DIAS 58; BP_DIAS 63; PULSE 89; RESP 20; TEMP 97.4; O2SAT 97
--- NOTE | 2017-10-21 15:59 | MB ---
cc: ALESIA IVEY,KERON Mensah M.D. DATE OF CONSULTATION 10/21/2017 DATE OF 1940. REFERRING PHYSICIAN Dr. Mercahnt. CONSULTATION Management of chest pain with history of CAD. HISTORY OF PRESENT ILLNESS Mr. Arora is a 76-year-old gentleman who presented to the ER with fatigue, dizziness, generalized weakness and nausea. He was admitted, underwent workup. So far the general symptoms could be related to hypoglycemia and hypokalemia. Over last 3 or 4 days the patient's symptoms have improved. So far he did feel better without any chest discomfort. Of note, he did have cardiac catheterization with Dr. Julia cedeno in September 27 and had a cardiac catheterization which showed multiple atherosclerotic lesions. After detailed discussion regarding high-risk PCIs he decided not to pursue any PCIs. He did not seek a second opinion and was seen by Dr. Galdamez in the last few weeks. He is scheduled to have cardiac catheterization with Dr. Galdamez when he comes back from vacation. So far I reviewed the EKG which showed sinus with some PVCs, QRS is 120 milliseconds. He does have ischemic cardiomyopathy. Echocardiogram so far showed EF around 25-30% with moderate MR, and mild TR. Some of the symptoms could be a combination of hypoglycemia, hypokalemia cardiomyopathy, CAD and MR. So far he has been feeling better. MEDICATION 1. Lisinopril. 1. Lovenox 40 mg q. 12. 2. Aspirin. 3. Lasix 40 mg daily. 4. Coreg 3.125 mg. 5. Lactulose. PAST MEDICAL HISTORY As above including diabetes. Hypertension. PAST SURGICAL HISTORY Surgery as above. ALLERGIES No known drug allergies. SOCIAL HISTORY He denied any smoking or large amount of alcohol intake. REVIEW OF SYSTEMS HEENT: Normal. GI: No nausea or vomiting. : No dysuria. MSK: Fatigue. CVS: As above. CHEST: Some dyspnea. ENDOCRINE: Normal. SKIN: Normal. PSYCH: Normal. MEDICAL LAB SCIENTIST: Dizziness which has resolved. PHYSICAL EXAMINATION VITAL SIGNS: The patient's blood pressure is stable. It is 125/70 with pulse in the 70s. O2 sat is 96% on room air. HEENT: Normocephalic. PERRLA. ENDOCRINE: No thyroid enlargement. LYMPHATICS: No lymphadenopathy. RESPIRATORY: Decreased breath sounds bilaterally but no crackles. CARDIOVASCULAR: Decreased S1-S2. Some ectopy is noted. No loud murmurs. No S3. GI: Active bowel sounds in all four quadrants. : Deferred. MSK: All range of motion. SKIN: There is no ecchymosis. PSYCH: The patient with good mood and good judgment. NEUROLOGIC: There is no focal neurologic deficits. TESTS Hematocrit 35 with potassium initially 3.4 which has improved, creatinine 1.6. EKG shows sinus with frequent PVCs. ASSESSMENT 1. Generalized weakness with dizziness which could be multifactorial including hypoglycemia, hypokalemia. Cardiomyopathy, CAD and MR. 2. Coronary artery disease with multiple lesions. 3. Ischemic cardiomyopathy with EF 25% with moderate MR. 4. Diabetes. 5. Hypertension. 6. Hyperkalemia. PLAN I did discuss with the patient regarding all options. He was quite hesitant to proceed with high risk PCIs. I will leave the treatment up to Dr. Galdamez. Dr. Galdamez is on vacation and he prefers to go home and follow up with Dr. Galdamez in the outpatient setting. I do think that is a reasonable option because so far he is relatively chest pain-free and he is able to ambulate. I will continue current cardiomyopathy regimen including lisinopril and Coreg. I will continue baby aspirin. At some point may consider adding Plavix and statin therapy. I will leave that to Dr. Galdamez who is his primary residence life director. If he has no PCI targets and he decides to not pursue any PCI or bypass option, the patient may benefit from ICD in the future for primary prevention but I will have him see Dr. Galdamez soon. So far he is chest pain-free, his BP is stable and no symptoms. I do things it is reasonable to have the patient go home with close followup with Dr. Galdamez. Thank you Dr. Gómez and Dr. Cage. MD CRISTINA Luo/CHARI /1:12 PM /3:16 PM
== END 2017-10-21 15:58 | disposition home health service (06) | DRG 683 ==
LOC: NEPE 13:03 → NEDA 15:52 → N05B 17:43
PROVIDERS: ADMIT Hospitalist; ATTEND Hospitalist
DX: N17.9 Acute kidney failure, unspecified (principal); I42.0 Dilated cardiomyopathy; E11.21 Type 2 diabetes mellitus with diabetic nephropathy; E87.6 Hypokalemia; I10 Essential (primary) hypertension; I25.10 Atherosclerotic heart disease of native coronary artery without angina pectoris; K21.9 Gastro-esophageal reflux disease without esophagitis; E78.5 Hyperlipidemia, unspecified; I49.3 Ventricular premature depolarization; E11.649 Type 2 diabetes mellitus with hypoglycemia without coma; I34.0 Nonrheumatic mitral (valve) insufficiency; M26.609 Unspecified temporomandibular joint disorder, unspecified side; Z79.84 Long term (current) use of oral hypoglycemic drugs
CPT/HCPCS: 71010; 80048; 80053; 80061; 82550; 82948; 83036; 83735; 83880; 84100; 84439; 84443; 84484; 85025; 85610; 85730; 93005; 93306; 93880; 96374; J1650; J1815; J2405; J3480; J7030